=== PATIENT | female | born 1965 | race Two or more races ===

== ENCOUNTER 2021-01-03 09:23 | Outpatient (CLI) | payer OTHER ==
[~2021-01-03 09:23] MED LIST: ALDACTONE25 MG; ASA81 MG; AVAPRO300 MG; BYDUREON2 MG; CARdura PO; COREG CR20 MG; COREG CR20 MG PO; HYDRALAZINE HCL50 MG; HYDRALAZINE HCL50 MG PO; HumaLOG 100 UNIT/1 ML (3ML) SUBCUTANEO; INTEGRA PLUS CAPSULE PO; LASIX20 MG; LASIX20 MG PO; LEVAQUIN750 MG PO; Lantus 1000 U/10 ML SUBCUTANEO; MICARDIS HCT 81 EAC1; NEURONTIN300 MG; NEURONTIN300 MG PO; Neurontin PO; PREDNISONE20 MG PO; PROTONIX40 MG PO; ZANTAC150 M3 PO; ZAROXOLYN2.5 M1; ZYLOPRIM100 M1; ZYLOPRIM100 M1 PO
== END 2021-01-03 09:29 | disposition home or self-care (01) ==
LOC: RAD 09:23
PROVIDERS: ATTEND Family Medicine
DX: R07.89 Other chest pain (principal); R05 Cough

== ENCOUNTER 2021-01-03 10:31 | Outpatient (CLI) | payer OTHER | END 2021-01-03 15:00 | disposition home or self-care (01) | LOC: LAB 10:31 | PROVIDERS: ATTEND Family Medicine | DX: D68.8 Other specified coagulation defects (principal); Z01.818 Encounter for other preprocedural examination ==